=== PATIENT | male | born 1995 | race Caucasian/White ===

== ENCOUNTER 2018-10-07 13:23 | Emergency (ER) | payer OTHER ==
[~2018-10-07] VITALS: Ht 170.2 cm; Wt 81.8 kg
[2018-10-07] MEDS ORDERED: ALEV220C2 PO (13:37)
[2018-10-07 14:00] LABS: BASO % 0.5 % (0.0-1.0); EOS # 0.1 10^3/uL (0.0-0.50); EOS % 1.8 % (0.0-3.0); HEMATOCRIT 42.8 % (42.0-52.0); HEMOGLOBIN 14.3 g/dl (13.5-17.5); LYMPH # 2.3 10^3/uL (1.5-6.5); LYMPH % 37.2 % (24.0-44.0); MEAN CORPUSCULAR HGB CONC 33.4 g/dl (32.0-36.5); MEAN CORPUSCULAR VOLUME 92.8 fl (80.0-96.0); MONO # 0.6 10^3/uL (0.0-0.8); MONO % 10.2 % (0.0-5.0); NEUTROPHILS % 50.1 % (36.0-66.0); PLATELET COUNT, AUTOMATED 393 10^3/uL (150-450); RED BLOOD COUNT 4.61 10^6/uL (4.30-6.10); WHITE BLOOD COUNT 6.1 10^3/uL (4.0-10.0)
[2018-10-07] MEDS ORDERED: ASPIRIN 325 MG TAB PO ONE (14:00)
[2018-10-07 14:34] LABS: ALBUMIN 4.4 GM/DL (3.2-5.2); ALT/SGPT 65 U/L (12-78); BILIRUBIN,DIRECT < 0.1 MG/DL (0.0-0.2); BILIRUBIN,TOTAL 0.3 MG/DL (0.2-1.0); BLOOD UREA NITROGEN 18 MG/DL (7-18); CALCIUM LEVEL 8.3 MG/DL (8.5-10.1); CARBON DIOXIDE LEVEL 28 MEQ/L (21-32); CHLORIDE LEVEL 108 MEQ/L (98-107); CPK CREATINE PHOSPHOKINASE 504 U/L (39-308); GLOMERULAR FILTRATION RATE > 60.0 (>60); GLUCOSE, FASTING 87 MG/DL (70-100); LIPASE 146 U/L (73-393); MB/CK RELATIVE INDEX 0.67 (< OR =4); POTASSIUM SERUM 3.6 MEQ/L (3.5-5.1); SODIUM LEVEL 142 MEQ/L (136-145); TOTAL PROTEIN 7.5 GM/DL (6.4-8.2); TROPONIN I < 0.02 NG/ML (< 0.10)
--- NOTE | 2018-10-07 14:37 | REP ---
PA and lateral chest: There are no comparisons. The lung jacob are clear. The cardiac size is normal. The dina, mediastinum, and skeletal structures are unremarkable. Impression: Negative PA and lateral chest. Electronically Signed by João May MD 10/07/2018 02:29 P
[2018-10-07] MEDS ORDERED: ISOVUE-370 76% 100ML VIAL (Q9967) As Ordered ONE (14:52)
--- NOTE | 2018-10-07 16:10 | REP ---
CT of the chest with IV contrast, CT pulmonary artery angiography protocol: There are no emboli in the pulmonary trunk or central pulmonary arteries. There are no emboli in the pulmonary artery lobe or segment branches. There are no infiltrates. No pleural effusions. There are no masses or nodules. There is no mediastinal or hilar lymph node enlargement. There is no axillary lymph node enlargement. The thoracic aorta is unremarkable. Cardiac size is normal. The visualized upper abdominal contents are unremarkable. Impression: There are no pulmonary emboli. Otherwise, negative CT study of the chest. Electronically Signed by João May MD 10/07/2018 04:02 P
[2018-10-07 19:44] LABS: CPK CREATINE PHOSPHOKINASE 377 U/L (39-308); MB/CK RELATIVE INDEX 0.66 (< OR =4); TROPONIN I < 0.02 NG/ML (< 0.10)
[2018-10-07 20:37] VITALS: BP 119/55
--- NOTE | 2018-10-08 20:53 | ECGEPIP ---
Stationary ECG Study [facility] - ED Test Date: 2018-10-07 Pat Name: MYRNA CASTELLANOS Department: Room: - Gender: M Service Agent: dorie : 1995 Requested By: PETER Wang Order Number: [id number] Reading MD: Teagan Miller Measurements Intervals [place] Rate: 68 P: 21 DC: 144 QRS: 60 QRSD: 101 T: 41 QT: 381 QTc: 407 Interpretive Statements SINUS RHYTHM NO PRIOR FOR COMPARISON Electronically Signed On 10-08-2018 20:53:26 EDT by Teagan Miller
--- NOTE | 2018-10-08 20:58 | ECGEPIP ---
Stationary ECG Study [facility] - ED Test Date: 2018-10-07 Pat Name: MYRNA CASTELLANOS Department: Room: - Gender: M District Operations Manager: gt : 1995 Requested By: JOCELYNN NICHOLS Order Number: [id number] Reading MD: Teagan Miller Measurements Intervals [place] Rate: 58 P: 22 SD: 149 QRS: 52 QRSD: 100 T: 40 QT: 390 QTc: 385 Interpretive Statements SINUS BRADYCARDIA DECREASED RATE 10/07/18 Electronically Signed On 10-08-2018 20:58:44 EDT by Teagan Miller
== END 2018-10-07 20:46 | disposition home or self-care (01) ==
LOC: M ED 13:23
DX: R07.89 Other chest pain (principal); R94.31 Abnormal electrocardiogram [ECG] [EKG]; F17.220 Nicotine dependence, chewing tobacco, uncomplicated; Z82.49 Family history of ischemic heart disease and other diseases of the circulatory system
CPT/HCPCS: 36415; 71046; 71275; 80048; 80076; 82550; 82553; 83690; 84484; 85025; 93005; 93041; 94760; 99285; Q9967